=== PATIENT | female | born 1975 | race Caucasian/White ===

== ENCOUNTER 2016-08-20 08:15 | Emergency (ER) ==
[2016-08-20 08:22] VITALS: BP 145/79; TEMP 96.8; BMI 32.3
[2016-08-20] MEDS ORDERED: ANTIVERT PO STA (08:22)
[2016-08-20] MEDS ORDERED: SODIUM CHLORIDE 500 ML IV STA (08:27)
[2016-08-20] MEDS ORDERED: ZOFRAN 4 MG/2 ML IVP STA (08:27)
[2016-08-20 08:31] LABS: BASOPHILS # (AUTO) 0.1 K/uL (0-0.2); BASOPHILS % (AUTO) 0.6 % (0.0-3.0); EOSINOPHILS # (AUTO) 0.1 K/ul (0.0-0.7); HEMATOCRIT 38.4 % (37.0-47.0); IMMATURE GRANULOCYTE % (AUTO) 0.1 % (0.0-5.0); LYMPHOCYTES # (AUTO) 3.5 K/uL (0.60-3.4); LYMPHOCYTES % (AUTO) 44.7 (10.0-50.0); MEAN CORPUSCULAR HEMOGLOBIN 27.5 pg (27.0-31.0); MEAN CORPUSCULAR HGB CONC 33.9 (31.8-35.4); MEAN CORPUSCULAR VOLUME 81.4 fl (81.0-99.0); MONOCYTES # (AUTO) 0.6 K/uL (0.4-2.0); MONOCYTES % (AUTO) 8.2 (0-10); NEUTROPHILS # (AUTO) 3.5 K/ul (2.0-6.9); NEUTROPHILS % (AUTO) 45.4; PLATELET COUNT 239 10^3/uL (140-440); RED BLOOD COUNT 4.72 10^6/ul (4.20-5.40); WHITE BLOOD COUNT 7.79 K/ul (4.6-10.2)
[2016-08-20 08:56] LABS: ALANINE AMINOTRANSFERASE 14 U/L (12-78); ALBUMIN 3.9 g/dL (3.4-5.0); ALBUMIN/GLOBULIN RATIO 1.15; ALKALINE PHOSPHATASE 51 U/L (42-98); ANION GAP 16.3; ASPARTATE AMINO TRANSFERASE 13 U/L (15-37); BILIRUBIN,TOTAL 0.95 mg/dL (0.00-1.20); BLOOD UREA NITROGEN 10 mg/dL (7-18); BUN/CREATININE RATIO 11.49; CALCIUM 9.5 mg/dL (8.2-10.2); CARBON DIOXIDE 19 mmol/L (21-32); CHLORIDE 108 mmol/L (98-107); CREATINE KINASE 53 U/L; CREATININE 0.87 mg/dL (0.60-1.30); GLUCOSE 144 mg/dL (70-110); POTASSIUM 3.3 mmol/L (3.5-5.10); SODIUM 140 mmol/L (136-145); TOTAL PROTEIN 7.3 g/dL (6.4-8.2)
[2016-08-20] MEDS ORDERED: VALIUM SYRINGE IVP STA ×2 (09:06→10:34)
--- NOTE | 2016-08-20 10:31 | MRI ---
EXAM: MRI brain without IV contrast. DATE: 08/20/2016. HISTORY: Extreme dizziness of acute onset today. TECHNIQUE: Sagittal T1W, axial T2W, axial FLAIR, axial T1W, axial DWI, and coronal T2W GRE sequence s of the brain were obtained using 1.2 Elizabeth magnet. No IV contrast. COMPARISON: None. FINDINGS: The ventricles, cisterns, and subarachnoid spaces are normal in size and configuration. No midline shift, herniation or abnormal extra-axial fluid collection is apparent. No acute infarct or hemorrhage is identified. A T2W slightly bright, IR slightly bright, T1W isointense, DWI mildly hyperintense, 1.4 x 1.5 x 1.2 cm lesion is demonstrated along the cortex of the left frontal lobe ne ar the superior vertex of the brain (best seen on axial image #21). The schultz - white matter differe ntiation is normal. The 7th/8th cranial nerve complexes, cerebellopontine angles, brainstem, and vi sible cervical spinal cord are normal. There is no cerebellar tonsillar ectopia. The pituitary gla nd is normal in size and signal. Corpus callosum is normal in size and configuration. Flow voids a re present in the major intracranial arteries and in the dural venous sinuses. No aneurysm, AVM or dural venous sinus thrombosis is apparent. No orbit abnormality is identified. The mastoid air micah ls are unremarkable. There is no acute sinusitis. No neck mass or lymphadenopathy is detected. Mi nor thickening of the inner table of the frontal bone appears benign. No calvarial neoplasm or acut e fracture is evident. IMPRESSIONS: 1. Left frontal region lesion along the anterosuperior surface of the left precentral gyrus. A men ingioma is a likely consideration. Intra-axial neoplasm is less likely. Contrast-enhanced study may be helpful to further characterize this lesion. 2. No acute infarct, hemorrhage, or hydrocephalus. 3. Minimal, benign hyperostosis frontalis interna. Critical result: Report called to Dr. Reeves at 1024 hrs, 08/20/2016.
--- NOTE | 2016-08-20 12:18 | MRI ---
EXAM: MRI brain without IV contrast. DATE: 08/20/2016. HISTORY: Intra-axial versus extra-axial brain lesion. Probable meningioma. TECHNIQUE: Axial, coronal, and sagittal T1W postcontrast sequences of the brain were obtained, in 1.2 Elizabeth magnet. CONTRAST: Omniscan - 17 ml IV. COMPARISON: MRI brain without contrast 08/20/2016. FINDINGS: The ventricles, cisterns, and subarachnoid spaces are normal in size configuration. No m idline shift, mass effect, herniation, or extra-axial fluid collection is apparent. No definitive a cute infarct or hemorrhage is identified. Pedroza - white matter differentiation is normal. A avidly enhancing, dural-based 1.7 x 1.5 x 1.2 cm lesion is apparently situated in the sulcus anterior to th e left central sulcus. This structure demonstrates an dural attachment with narrow dural tail . No other enhancing lesion is identified in the extra-axial spaces or within the brain. Seventh/eighth cranial nerve complexes, cerebellopontine angles, and brainstem are unremarkable. Mastoid air cell s and middle ear cavity appear normal bilaterally. Paranasal sinuses are unremarkable. Orbits appe ar normal. No arterial occlusion or aneurysm is demonstrated. No calvarial malignancy is identifie d. Slight thickening of the inner table of the frontal bone is benign. Limited portion of the cerv ical spine reveals no neoplasm or disc protrusion. No upper neck mass or lymphadenopathy is evident . IMPRESSIONS: 1. Left frontal extra-axial lesion is most c/w a meningioma. This lesion causes mild mass effect o n the anterior surface of the left precentral gyrus. 2. Otherwise, normal enhanced brain. 3. Minor hyperostosis frontalis interna.
--- NOTE | 2016-08-20 13:11 | ED.PDOC ---
General ED Provider: Dr. NICK VERDUGO Chief Complaint: Dizziness Stated Complaint: dizziness Time Seen by Physician: 08:30 (no neuro deficits ) Mode of Arrival: Walk-In Information Source: Patient, Family Exam Limitations: No limitations Primary Care Provider: MAYE HENRIQUEZ Nursing and Triage Documentation Reviewed and Agree: Yes Neurological Complaint Exam - Dizziness Complaint/Exam Last Known Well: this morning Onset: Gradual Duration: present Timing: Constant Episodes Lasting: Minutes Initial Severity: Moderate Current Severity: Moderate Character: Reports: Dizzy Aggravating: Reports: Position change Alleviating: Reports: Rest, Lying down Associated Signs and Symptoms: Reports: Nausea. Denies: Vomiting, Diaphoresis, Tinnitus, Chest pain, Short of air, Palpitations, Unsteady gait, GI blood loss, Visual changes, Decreased oral intake, Change in medication, Change in diet, OTC meds, Loss of balance Related History: Similar episode CVA Risk Factors: Reports: None Related Surgical History: Reports: None JVD Present: No Carotid Bruit Present: No Rectal Heme Positive: No Glascow Coma Scale (see protocol): 15 Nystagmus Present: No Gag Reflex Present: Yes Meningeal Signs Positive: No Focal Weakness: Present: None Focal Sensory Loss: Present: None Gait: Normal [id number]: Normal Findings Differential Diagnoses: Dysrhythmia, BPPV Quality Indicators for Cardiac Chest Pain: EKG in 10min. Quality Indicators for AMI: EKG in 10min. Review of Systems - Review Of Systems Constitutional: Reports: No symptoms Eyes: Reports: No symptoms Ears, Nose, Mouth, Throat: Reports: No symptoms Respiratory: Reports: No symptoms Cardiac: Reports: No symptoms GI: Reports: No symptoms : Reports: No symptoms Musculoskeletal: Reports: No symptoms Skin: Reports: No symptoms Neurological: Reports: Other (DIZZINESS) Endocrine: Reports: No symptoms Hematologic/Lymphatic: Reports: No symptoms All Other Systems: Reviewed and Negative Past Medical History - Past Medical History Previously Healthy: Yes Endocrine: Reports: Hypothyroid, Dyslipidemia Cardiovascular: Reports: None Respiratory: Reports: None Hematological: Reports: None Gastrointestinal: Reports: None Genitourinary: Reports: None Neuro/Psych: Reports: Anxiety Musculoskeletal: Reports: None Cancer: Reports: None Last Menstrual Period: 1 WEEK AGO - Surgical History General Surgical History: Reports: Unknown - Family History Family History: Reports: Unknown - Social History Smoking Status: Former smoker Hx Substance Use: No Alcohol Screening: None Physical Exam - Physical Exam Appearance: Well-appearing, No pain distress, Well-nourished Eyes: JARON, EOMI, Conjunctiva clear ENT: Ears normal, Nose normal, Oropharynx normal Respiratory: Airway patent, Breath sounds clear, Breath sounds equal, Respirations nonlabored Cardiovascular: RRR, Pulses normal, No rub, No murmur GI/: Soft, Nontender, No masses, Bowel sounds normal, No Organomegaly Musculoskeletal: Normal strength, ROM intact, No edema, No calf tenderness Skin: Warm, Dry, Normal color Neurological: Sensation intact, Motor intact, Reflexes intact, Cranial nerves intact, Alert, Oriented Psychiatric: Affect appropriate, Mood appropriate Interpretation - Radiology Interpretation Radiology Interpretation By: Radiologist Radiology Results: Positive (brain mass MRI) Physician Notification - Case Discussed Physician Notified: RAF Time of Notification: 13:13 (AT [facility] . IMAGING DISCUSSED HE STATED PT CAN FOLLOW WITH [facility] NEXT WEEK) Critical Care Note - Critical Care Note Total Time (mins): 0 Course - Course Hematology/Chemistry: 08/20/16 08:27 08/20/16 08:27 Orders, Labs, Meds: Lab Review 08/20/16 08:27 WBC 7.79 RBC 4.72 Hgb 13.0 Hct 38.4 MCV 81.4 MCH 27.5 MCHC 33.9 RDW Coeff of Janes 14.9 H Plt Count 239 Immature Gran % (Auto) 0.1 Neut % (Auto) 45.4 Lymph % (Auto) 44.7 [place] % (Auto) 8.2 Eos % (Auto) 1.0 Baso % (Auto) 0.6 Immature Gran # (Auto) 0.0 Neut # 3.5 Lymph # 3.5 H [place] # 0.6 Eos # 0.1 Baso # 0.1 Sodium 140 Potassium 3.3 L Chloride 108 H Carbon Dioxide 19 L Anion Gap 16.3 BUN 10 Creatinine 0.87 Estimated GFR (MDRD) 71.00 BUN/Creatinine Ratio 11.49 Glucose 144 H Calcium 9.5 Total Bilirubin 0.95 AST 13 L ALT 14 Alkaline Phosphatase 51 Total Creatine Kinase 53 Troponin I < 0.0100 Total Protein 7.3 Albumin 3.9 Globulin 3.4 Albumin/Globulin Ratio 1.15 Orders Category Date Time Status EKG-(ED ONLY) Stat CARDIO 08/20/16 08:22 Completed ED IV/MEDIPORT/POWERPORT .ONCE EMERGENCY 08/20/16 08:22 Active CBC W/ AUTO DIFF Stat LAB 08/20/16 08:27 Completed COMPREHENSIVE METABOLIC PANEL Stat LAB 08/20/16 08:27 Completed CREATINE KINASE Stat LAB 08/20/16 08:27 Completed TROPONIN I Stat LAB 08/20/16 08:27 Completed 0.9 % Sodium Chloride [Saline Flush] MEDS 08/20/16 08:22 Active 1 syr IVF PRN PRN Diazepam Syringe [Valium Syringe] MEDS 08/20/16 09:06 Discontinued 2 mg IVP ONCE STA Diazepam Syringe [Valium Syringe] MEDS 08/20/16 10:34 Discontinued 2 mg IVP ONCE STA Meclizine HCl [Antivert] MEDS 08/20/16 08:22 Discontinued 25 mg PO ONCE STA Ondansetron HCl/Pf [Zofran 4 mg/2 ml] MEDS 08/20/16 08:27 Discontinued 4 mg IVP ONCE STA Sodium Chloride 0.9% [Sodium Chloride] 500 ml MEDS 08/20/16 08:27 Discontinued IV BOLUS MRI BRAIN W/O CONTRAST Stat RADS 08/20/16 08:24 Completed Medications Generic Name Dose Route Start Last Admin Trade Name Freq PRN Reason Stop Dose Admin Sodium Chloride 1 syr 08/20/16 08:22 Saline Flush IVF PRN PRN To flush IV Discontinued Medications Generic Name Dose Route Start Last Admin Trade Name Freq PRN Reason Stop Dose Admin Diazepam 2 mg 08/20/16 09:06 08/20/16 09:14 Valium Syringe IVP 08/20/16 09:07 2 mg ONCE STA Administration Diazepam 2 mg 08/20/16 10:34 08/20/16 11:07 Valium Syringe IVP 08/20/16 10:35 2 mg ONCE STA Administration Sodium Chloride 500 mls @ 500 mls/hr 08/20/16 08:27 08/20/16 08:35 Sodium Chloride IV 08/20/16 09:26 500 mls/hr BOLUS STA Administration Meclizine HCl 25 mg 08/20/16 08:22 08/20/16 09:06 Antivert PO 08/20/16 08:23 25 mg ONCE STA Administration Ondansetron HCl 4 mg 08/20/16 08:27 08/20/16 08:36 Zofran 4 Mg/2 Ml IVP 08/20/16 08:28 4 mg ONCE STA Administration Vital Signs: Temp Pulse Resp BP Pulse Ox 08/20/16 08:18 96.8 F L 73 18 145/79 H 100 Departure - Departure Time of Disposition: 13:11 Disposition: HOME SELF-CARE Discharge Problem: Dizziness, Brain tumor Instructions: Meningioma (ED), Vertigo (ED), Dizziness (ED) Condition: Good Pt referred to PMD for follow-up: Yes ([facility] ) Allergies/Adverse Reactions: Allergies No Known Allergies Allergy (Verified 02/10/15 12:11) Home Medications: Ambulatory Orders Atorvastatin Calcium [Lipitor] 5 mg PO DAILY 08/20/16
== END 2016-08-20 13:35 | disposition home or self-care (01) ==
LOC: ED 08:15
DX: R42 Dizziness and giddiness (principal); D49.6 Neoplasm of unspecified behavior of brain; E03.9 Hypothyroidism, unspecified; E78.5 Hyperlipidemia, unspecified
CPT/HCPCS: 36415; 80053; 82550; 84484; 85025; 93005; 93010; 96361; 96374; 96375; 96376; 99283

== ENCOUNTER 2016-12-10 13:24 | Outpatient (CLI) ==
--- NOTE | 2016-12-11 09:06 | MAMMO ---
EXAM: Digital screening mammogram HISTORY: Screening COMPARISON: 06/17/2015 FINDINGS: Digital MLO and CC views of the right and left breast were performed. Computer aided det ection was utilized. The breast tissue is heterogeneously dense, which could obscure small masses. There is no evidence for mass, asymmetry, distortion, or suspicious calcifications in either breast . IMPRESSION: 1. No evidence of malignancy in the right or left breast. 2. Annual screening mammogram is recommended in one year. BIRADS category 1, negative examination
== END 2016-12-10 13:25 | disposition home or self-care (01) ==
LOC: RAD 13:24
PROVIDERS: ATTEND Family Medicine
DX: Z12.31 Encounter for screening mammogram for malignant neoplasm of breast (principal)
CPT/HCPCS: 77067

== ENCOUNTER 2017-02-24 12:41 | Outpatient (CLI) ==
--- NOTE | 2017-02-24 13:04 | DI ---
EXAM: Chest two view, frontal and lateral views. HISTORY: Chest discomfort. COMPARISON: 02/10/2015. FINDINGS: The heart size is normal. There is no pulmonary vascular congestion. The lungs are clear . No pleural effusion or pneumothorax is seen. No acute osseous abnormality identified. Since the prior study, there has been no significant interval change. IMPRESSION: No acute cardiopulmonary process.
== END 2017-02-24 12:42 | disposition home or self-care (01) ==
LOC: RAD 12:41
PROVIDERS: ATTEND Physician Assistant
DX: R07.89 Other chest pain (principal)

== ENCOUNTER 2018-01-04 12:50 | Outpatient (CLI) ==
--- NOTE | 2018-01-05 09:33 | MAMMO ---
EXAM: Digital screening mammogram with tomosynthesis HISTORY: Screening COMPARISON: 12/10/2016 FINDINGS: Digital MLO and CC views of the right and left breast were performed. Tomosynthesis was pe rformed. Computer aided detection utilized. The breast tissue is dense, which limits the sensitivity of mammography. There is no evidence for mass, asymmetry, distortion, or suspicious calcifications in either breast. IMPRESSION: 1. No evidence of malignancy in the right or left breast. 2. Annual screening mammogram is recommended in one year. BIRADS category 1, negative examination
== END 2018-01-04 12:51 | disposition home or self-care (01) ==
LOC: RAD 12:50
PROVIDERS: ATTEND Family Medicine
DX: Z12.31 Encounter for screening mammogram for malignant neoplasm of breast (principal)
CPT/HCPCS: 77067

== ENCOUNTER 2018-04-13 16:18 | Outpatient (CLI) | END 2018-04-13 16:19 | disposition home or self-care (01) | LOC: CAR 16:18 | PROVIDERS: ATTEND Nurse Practitioner Family | DX: R10.13 Epigastric pain (principal) | CPT/HCPCS: 93005; 93010 ==

== ENCOUNTER 2018-04-25 07:56 | Outpatient (CLI) ==
--- NOTE | 2018-04-25 09:00 | US ---
EXAM: ULTRASOUND ABDOMEN LIMITED HISTORY: Epigastric abdominal pain FINDINGS: Ultrasound abdomen, limited. Pedroza-scale ultrasound and color Doppler was performed. Live r size was normal at 13 cm. Two simple liver cysts are noted measuring about a centimeter. One appe ars to be in the right lobe and the other in the left lobe. No intrahepatic biliary dilatation. The main portal vein is patent and hepatopedal. No gallbladder stones or sludge. Normal gallbladder wall thickness at 0.21 cm. The common bile duct diameter is normal at 0.27 cm. Visualized pancreas was within normal limits. No ascites identified . IMPRESSION: 1. No gallbladder pathology identified. 2. A few simple tiny liver cysts.
== END 2018-04-25 07:57 | disposition home or self-care (01) ==
LOC: RAD 07:56
PROVIDERS: ATTEND Nurse Practitioner Family
DX: R10.13 Epigastric pain (principal)

== ENCOUNTER 2018-05-03 07:44 | Outpatient (CLI) ==
--- NOTE | 2018-05-03 10:46 | NM ---
EXAM: Hepatobiliary scan HISTORY: Right upper quadrant pain. COMPARISON: 07/12/2009. Ultrasound 04/25/2018. PROCEDURE: The patient was injected with 5.3 mCi of 99mTc mebrofenin intravenously. Images of the ab domen were obtained at 5 min intervals for 30 minutes. Additional images were obtained 45 minutes a nd 1 hour. The patient was then injected with 2 mcg of CCK by slow infusion while images of the gallb ladder were obtained to assess gallbladder contraction. The patient described right upper quadrant p ain and discomfort during the injection of CCK. FINDINGS: Sequential images demonstrate normal uptake of tracer into the liver. Activity is seen in the intrahepatic biliary ducts at about 15 minutes. The activity appears in the gallbladder at about 15 minutes. Subsequent images demonstrate increasing activity in the gallbladder. Activity first a ppears in the small bowel at 25 minutes. The gallbladder ejection fraction is 62% . IMPRESSION: 1.Normal hepatobiliary scan. 2.The gallbladder ejection fraction is 62% (normal).
== END 2018-05-03 07:45 | disposition home or self-care (01) ==
LOC: RAD 07:44
PROVIDERS: ATTEND Nurse Practitioner Family
DX: R10.11 Right upper quadrant pain (principal)